=== PATIENT | male | born 1990 | race Caucasian/White ===

== ENCOUNTER 2017-04-22 22:52 | Emergency (ER) | payer SELFPAY ==
[2017-04-22 22:55] VITALS: BP 129/69; PULSE 71; RESP 16; TEMP 98.2; O2SAT 96
[2017-04-23 01:30] VITALS: BP 125/64; PULSE 65; RESP 16; O2SAT 97
[2017-04-23] MEDS ORDERED: KETOROLAC TROMETHAMINE 60 MG/2 ML (IM) VIAL IM ONE (02:00)
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
[2017-04-23] MEDS ORDERED: MORPHINE SULFATE 4 MG/ML INJ IV PUSH ONE (02:45)
[2017-04-23] MEDS ORDERED: SODIUM CHLORIDE 0.9% FLUSH 10 ML FLUSH IVF PRN (02:45)
--- NOTE | 2017-04-23 03:03 | RADRPT ---
EXAM DATE/TIME: 04/23/2017 01:53 [facility] COMPARISON: No previous studies available for comparison. INDICATIONS : Sudden onset shortness of breath- history of spontaneous pnuemothorax. MEDICAL HISTORY : None. SURGICAL HISTORY : None. ENCOUNTER: Initial ACUITY: 1 day PAIN SCORE: 8/10 LOCATION: Bilateral chest FINDINGS: The cardiac silhouette is normal in transverse diameter. There is probable opacity laterally in the r ight middle lobe characteristic of pneumoniaNo pleural effusions are identified. The left lung is elizabeth e of acute parenchymal opacity. CONCLUSION: 1. Subsegmental atelectasis versus pneumonia right middle lobe Bobo Perera MD on April 23, 2017 at 3:01 Board Certified Radiologist. This report was verified electronically.
[2017-04-23 03:37] LABS: AUTOMATED NEUTROPHIL # 4.7 TH/MM3 (1.8-7.7); BASOPHIL % 0.6 % (0.0-2.0); EOSINOPHIL # 0.3 TH/MM3 (0-0.4); EOSINOPHIL % 4.5 % (0.0-4.0); HEMATOCRIT 38.5 % (39.0-51.0); HEMO FLAGS DIFF FINAL; LYMPHOCYTE # 1.4 TH/MM3 (1.0-4.8); MEAN CELL VOLUME 87.6 FL (80.0-100.0); MEAN CORPUSCULAR HEMOGLOBIN 29.1 PG (27.0-34.0); MEAN CORPUSCULAR HGB CONC 33.2 % (32.0-36.0); MONO % 12.1 % (0.0-8.0); NEUT % 63.8 % (16.0-70.0); PLATELET COUNT 190 TH/MM3 (150-450); RED BLOOD COUNT 4.39 MIL/MM3 (4.50-5.90); RED CELL DISTRIBUTION WIDTH 13.9 % (11.6-17.2); WHITE BLOOD COUNT 7.4 TH/MM3 (4.0-11.0)
[2017-04-23 04:00] VITALS: BP 115/60; PULSE 70; RESP 14; O2SAT 94
[2017-04-23 04:21] LABS: BICARBONATE 33.6 MEQ/L (21.0-32.0); POTASSIUM 3.7 MEQ/L (3.5-5.1)
[2017-04-23] MEDS ORDERED: IOHEXOL 350 MG/ML 10 ML VIAL (for RAD DIAG) IV ONE (05:18)
--- NOTE | 2017-04-23 05:29 | RADRPT ---
EXAM DATE/TIME: 04/23/2017 04:37 [facility] COMPARISON: No previous studies available for comparison. INDICATIONS : Right side chest pain and shortness of breath. IV CONTRAST: 50 cc Omnipaque 350 (iohexol) IV RADIATION DOSE: 4.52 CTDIvol (mGy) MEDICAL HISTORY : Spontaneous pneumothorax. SURGICAL HISTORY : None. ENCOUNTER: Initial ACUITY: 3 days PAIN SCALE: 7/10 LOCATION: Right chest TECHNIQUE: Volumetric scanning of the chest was performed. Using automated exposure control and adjustment of t he mA and/or kV according to patient size, radiation dose was kept as low as reasonably achievable to obtain optimal diagnostic quality images. DICOM format image data is available electronically for review and comparison. Follow-up recommendations for incidentally detected pulmonary nodules are based at a minimum on nodul e size and patient risk factors according to Fleischner Society Guidelines. FINDINGS: There is alveolar opacity in the right middle lobe characteristic of pneumonia. A small right sided e ffusion is present. The left lung is free of acute parenchymal opacity. Examination of the mediastinum demonstrates no abnormally enlarged lymph nodes by CT criteria. No axi llary or hilar abnormalities are identified. Coronary artery calcifications are not present. The visu alized upper abdomen demonstrates no abnormality. CONCLUSION: Right middle lobe pneumonia. Small right effusion Followup radiographs to ensure clearing is recommended Bobo Perera MD on April 23, 2017 at 5:24 Board Certified Radiologist. This report was verified electronically.
[2017-04-23] MEDS ORDERED: AZIT250T3 PO (05:43)
[2017-04-23] MEDS ORDERED: PERC7.5T13 PO (05:43)
[2017-04-23] MEDS ORDERED: AZITHROMYCIN 250 MG TAB PO ONE (05:45)
== END 2017-04-23 05:59 | disposition home or self-care (01) ==
LOC: NEPE 22:52
DX: J18.1 Lobar pneumonia, unspecified organism (principal); Z72.0 Tobacco use
CPT/HCPCS: 71010; 71260; 80048; 85025; 94150; 99285; Q9967